=== PATIENT | male | born 1985 | race Caucasian/White ===

== ENCOUNTER 2021-10-07 14:16 | Emergency (ER) | payer OTHER ==
[~2021-10-07] VITALS: Ht 170.2 cm; Wt 113.6 kg
[2021-10-07] MEDS ORDERED: ALBU6.7H9 INH (17:11)
[2021-10-07 17:22] VITALS: BP 130/90
== END 2021-10-07 17:24 | disposition home or self-care (01) ==
LOC: ER 14:17
DX: J06.9 Acute upper respiratory infection, unspecified (principal); Z20.822 Contact with and (suspected) exposure to COVID-19; I10 Essential (primary) hypertension; F12.90 Cannabis use, unspecified, uncomplicated; Z86.16 Personal history of COVID-19; Z79.899 Other long term (current) drug therapy
CPT/HCPCS: 71046; 87502; 87503; 87635; 99284; C9803

== ENCOUNTER 2022-07-08 05:46 | Day surgery (SDC) | payer OTHER ==
[~2022-07-08] VITALS: Ht 170.2 cm; Wt 100.7 kg
[2022-07-08] VITALS (10 sets, daily range): BP systolic 105–133; BP diastolic 67–93
[~2022-07-08 05:46] MED LIST: CLON-369 PO; DESV100T16 PO; DOCUMENT DATE & TIME OF BETA-BLOCKER PO ONE; METO-411 PO; ROSU20TA31 PO; famotidine 20mg tablet PO ONE; ringers solution, lacted 1,000 ML IV SCH; tranexamic acid inj. 1,000 MG in normal saline IV soln 100ML IV ONE
[2022-07-08] MEDS ORDERED: oxymetazoline 15 ML nasal spray NS PRN (06:00)
[2022-07-08] MEDS ORDERED: mupirocin 2% ointment 22GM ONE (06:43)
[2022-07-08] MEDS ORDERED: LIDOcaine 1% 30ml preserv. free vial ONE (06:43)
[2022-07-08] MEDS ORDERED: tranexamic acid 100mg/ml inj. ONE (06:43)
[2022-07-08] MEDS ORDERED: cocaine 4% topical solution 4ml bottle ONE (06:43)
[2022-07-08] MEDS ORDERED: epiNEPHrine 1 mg/ml inj ONE (06:43)
[2022-07-08] MEDS ORDERED: oxymetazoline 15 ML nasal spray NS ONE ×2 (06:44→08:49)
[2022-07-08] MEDS ORDERED: fentaNYL/PF 50MCG/1 ML 2ML syringe ONE ×2 (07:59→09:38)
[2022-07-08] MEDS ORDERED: dexamethasone sod phosphate 4mg/ml inj. ONE (08:15)
[2022-07-08] MEDS ORDERED: ondansetron/PF 4mg/2ml inj ONE (08:15)
[2022-07-08] MEDS ORDERED: sevoflurane 250ml liquid IH ONE (08:15)
[2022-07-08] MEDS ORDERED: PHENYLephrine 10mg/ml 5ml injection IV ONE (08:15)
[2022-07-08] MEDS ORDERED: glycopyrrolate 0.2mg/ml inj ONE (08:15)
[2022-07-08] MEDS ORDERED: ePHEDrine 50MG/ML INJ. ONE (08:15)
[2022-07-08] MEDS ORDERED: LIDOcaine 1% w/EPI 1:100,000 30ml vial (MDV) IJ ONE (08:48)
[2022-07-08] MEDS ORDERED: morphine 2 MG/ML inj. syringe IV PRN (08:50)
[2022-07-08] MEDS ORDERED: morphine 4 MG/ML inj SYRINge IV PRN (08:50)
[2022-07-08] MEDS ORDERED: meperidine/PF 25mg/ml syringe IV PRN ×3 (08:50)
[2022-07-08] MEDS ORDERED: hydrALAZINE 20mg/ml inj. IV PRN (08:50)
[2022-07-08] MEDS ORDERED: ondansetron/PF 4mg/2ml inj IV PRN (08:50)
[2022-07-08] MEDS ORDERED: acetaminophen 1,000mg/100ml IV 100 ML IV PRN (08:50)
[2022-07-08] MEDS ORDERED: labetalol 5mg/ml 20ml inj. IV PRN (08:50)
[2022-07-08] MEDS ORDERED: ringers solution, lacted 1,000 ML IV SCH (08:50)
--- NOTE | 2022-07-08 10:11 | NUR ---
Received from OR via [facility], accompanied by Anesthesiologist DR BARCENAS and report given by Anesthesiolgist. PT IS GROGGY BUT RESPONDS TO VERBAL STIMULI AND ANSWERS QUESTIONS APPROPRIATELY. PT PLACED ON BEDSIDE MONITOR, VSS. PT IS IN SR WITH RATE IN 80'S. PT RECEIVING 10L O2 TO MASK AND TOLERATING WELL WITH O2 SAT >96%. WILL TITRATE DOWN PT TOLERATE. PT HAS 20G PIV TO RT HAND WITH LR INFUSING ORDERED. PT HAS COTTONOIDS TO BILAT NARES. PT DENIES PAIN AT THIS TIME. WILL CONTINUE TO ASSESS.
[2022-07-08] MEDS ORDERED: salt irrigation nasal spray 45 ML SPRAY NS PRN (10:35)
--- NOTE | 2022-07-08 10:35 | NUR ---
COTTONOIDS REMOVED AFTER 30MIN TO BILAT NARES. MINIMAL BLOOD NOTED. NASAL MUSTACHE WITH GAUZE PLACED. PT TOLERATED WELL. CONTINUES TO DENY PAIN. WILL CONTINUE TO ASSESS
--- NOTE | 2022-07-08 11:40 | NUR ---
ABLE TO SAFELY AMBULATE AND TRANSFER SELF. IV TAKEN OUT WITHOUT ANY COMPLICATIONS. ALL DISCHARGE INSTRUCTIONS COVERED WITH PATIENT AND ALL QUESTIONS ANSWERED. PATIENT TAKEN OUT VIA WHEELCHAIR TO PERSONAL VEHICLE WHERE DROVE PATIENT HOME.
== END 2022-07-08 11:32 | disposition home or self-care (01) ==
LOC: PAS 05:46
PROVIDERS: ATTEND Otolaryngology
DX: J32.8 Other chronic sinusitis (principal); J34.3 Hypertrophy of nasal turbinates; J34.2 Deviated nasal septum; J34.89 Other specified disorders of nose and nasal sinuses; J33.8 Other polyp of sinus; F41.9 Anxiety disorder, unspecified; F17.220 Nicotine dependence, chewing tobacco, uncomplicated; I10 Essential (primary) hypertension; F32.A Depression, unspecified; G47.33 Obstructive sleep apnea (adult) (pediatric); Z20.822 Contact with and (suspected) exposure to COVID-19; Z72.89 Other problems related to lifestyle; Z98.890 Other specified postprocedural states; Z79.899 Other long term (current) drug therapy
CPT/HCPCS: 30140; 30520; 31240; 31254; 31267; 36415; 61782; 82948; 87635; 93005; A6402; C9803; J0171; J1100; J2370; J2405; J3010; J3490; J7030; J7050; J7120; U0003; U0005; Z7506; Z7508; Z7512; A4618; A6449; A7000

== ENCOUNTER 2023-04-01 09:11 | Emergency (ER) | payer OTHER ==
[~2023-04-01] VITALS: Ht 170.2 cm; Wt 93.0 kg
[~2023-04-01 09:11] MED LIST changes: -DOCUMENT DATE & TIME OF BETA-BLOCKER PO ONE; -ROSU20TA31 PO; +ROSU20TA73 PO; -famotidine 20mg tablet PO ONE; -ringers solution, lacted 1,000 ML IV SCH; -tranexamic acid inj. 1,000 MG in normal saline IV soln 100ML IV ONE
[2023-04-01 09:18] VITALS: BP 132/90; PULSE 81; RESP 16; TEMP 98.3; O2SAT 98
== END 2023-04-01 09:39 | disposition home or self-care (01) ==
LOC: ER 09:11
DX: M54.50 Low back pain, unspecified (principal); I10 Essential (primary) hypertension; F41.9 Anxiety disorder, unspecified; Z79.899 Other long term (current) drug therapy
CPT/HCPCS: 99281

== ENCOUNTER 2023-04-22 09:18 | Emergency (ER) | payer OTHER ==
[~2023-04-22] VITALS: Ht 170.2 cm; Wt 89.6 kg
[2023-04-22] MEDS ORDERED: DOCU-21 PO (11:00)
[2023-04-22] MEDS ORDERED: IBUP-1984 PO (11:00)
[2023-04-22] MEDS ORDERED: HYDR25SU7 RC (11:00)
[2023-04-22] MEDS: ketorolac trometh. 30mg/ml inj. IM ONE (11:09)
[2023-04-22 11:23] VITALS: BP 178/106; PULSE 101; RESP 18; TEMP 98.2; O2SAT 100
== END 2023-04-22 11:26 | disposition home or self-care (01) ==
LOC: ER 09:18
DX: K64.4 Residual hemorrhoidal skin tags (principal); K62.89 Other specified diseases of anus and rectum; I10 Essential (primary) hypertension; F41.9 Anxiety disorder, unspecified; F12.90 Cannabis use, unspecified, uncomplicated; Z79.899 Other long term (current) drug therapy
CPT/HCPCS: 96372; 99283; J1885

== ENCOUNTER 2023-05-14 20:25 | Emergency (ER) | payer OTHER ==
[~2023-05-14] VITALS: Ht 170.2 cm; Wt 81.8 kg
[~2023-05-14 20:25] MED LIST changes: +DOCU-21 PO; +HYDR25SU7 RC; +IBUP-1984 PO
[2023-05-14 20:28] VITALS: BP 143/92; PULSE 110; TEMP 97.2; O2SAT 99
[2023-05-14] MEDS ORDERED: ketorolac tromethamine 15mg/ml inj. IM ONE (21:20)
[2023-05-14] MEDS ORDERED: PRED20TA PO (21:24)
[2023-05-14] MEDS ORDERED: CEPH-585 PO (21:24)
[2023-05-14] MEDS ORDERED: ketorolac trometh inj. 60 MG/2 ML VIAL IM ONE (21:30)
[2023-05-14] MEDS ORDERED: ketorolac trometh. 30mg/ml inj. IM ONE (21:35)
[2023-05-14 21:36] VITALS: RESP 16
== END 2023-05-14 21:28 | disposition home or self-care (01) ==
LOC: ER 20:26
DX: S63.91XA Sprain of unspecified part of right wrist and hand, initial encounter (principal); X58.XXXA Exposure to other specified factors, initial encounter; Y93.89 Activity, other specified; Y92.89 Other specified places as the place of occurrence of the external cause; Y99.8 Other external cause status
CPT/HCPCS: 96372; 99283; J1885

== ENCOUNTER 2024-12-14 19:01 | Emergency (ER) | payer OTHER, BC ==
[~2024-12-14] VITALS: Ht 167.6 cm; Wt 61.2 kg
[~2024-12-14 19:01] MED LIST changes: -IBUP-1984 PO; -ROSU20TA73 PO; +ROSU20TA98 PO
[2024-12-14] MEDS ORDERED: iohexol 300mg/ml 100ml inj. ONE (19:41)
[2024-12-14 19:49] LABS: MEAN PLATELET VOLUME 7.3 FL (7.4-10.4); RED CELL DISTRIBUTION WIDTH 14.4 % (11.5-14.5)
[2024-12-14 20:02] LABS: APTT 27 SECONDS (22-32); INR 1.0 INR
--- NOTE | 2024-12-14 20:15 | RADIOLOGY REPORT ---
EXAM: CT CT CERVICAL SPINE INDICATION: longterm, pain EXAM DATE: 12/14/2024 07:51 PM COMPARISON: None TECHNIQUE: Multiple axial CT images of the cervical spine were obtained using bone algorithm. Axial a nd coronal reformatting was done. Bone and soft tissue windows were reviewed. Radiation Dose Information: CT Dose: CTDI volume is a 18.17 mGy. Dose-length product is 485.09 mGy*cm FINDINGS: No acute displaced fracture. The alignment is maintained. There are mild degenerative changes of the cervical spine characterized by endplate osteophytosis and intervertebral disc space narrowing, most pronounced at C5-6. There is mild uncovertebral hypertroph y. There is no CT evidence of high-grade spinal canal or neural foraminal stenosis. The paraspinal soft tissues are unremarkable. IMPRESSION: 1. No acute displaced fracture. 2. Degenerative changesMild of the cervical spine as detailed. 3. If clinical symptoms persist, MRI may be beneficial in further evaluation. All CT scans at this medical facility are performed using dose modulation techniques as appropriate t o a performed exam including the following: Automated exposure control was utilized; adjustment of th e MA and/or KV according to patient size; and use of iterative reconstruction technique.
[2024-12-14 20:19] LABS: CREATININE 1.10 MG/DL (0.60-1.10); TOTAL CARBON DIOXIDE 27.6 MMOL/L (24-32); eCRCL 77 ML/MIN; eGFR 74 ML/MIN
--- NOTE | 2024-12-14 20:27 | RADIOLOGY REPORT ---
CLINICAL HISTORY: alf, pain TECHNIQUE: Helical imaging carried out from skull base to vertex without intravenous contrast. This e xam was performed according to our departmental dose optimization program. Up-to-date CT equipment an d radiation dose reduction techniques are utilized as appropriate. CTDIVol: 0.14+ 70.55 mGy DLP: 1436.1 mGy-cm WID: COMPARISON: None FINDINGS: The ventricles and subarachnoid spaces are normal in size and configuration. There is no midline jacquelyn ft or mass effect. The nuñez white matter interfaces are maintained. The basal cisterns are patent. Th ere is no evidence of acute intracranial hemorrhage or extra-axial fluid collection. The mastoid air cells and visualized paranasal sinuses are well-aerated aside from mild mucosal thickening of the lef t maxillary sinus. IMPRESSION: No acute intracranial abnormality.
[2024-12-14] MEDS: morphine 4 MG/ML inj SYRINge IV ONE (20:30)
[2024-12-14] MEDS: ondansetron/PF 4mg/2ml inj IV ONE (20:30)
--- NOTE | 2024-12-14 20:31 | RADIOLOGY REPORT ---
EXAM: CT CT T L SPINE HISTORY: fpc, pain COMPARISON: CT CT CERVICAL SPINE on DOS: 12/14/24 TECHNIQUE: Noncontrast axial CT images of the lumbar spine were performed. Sagittal and coronal refor matted images were obtained. This CT exam was performed using one or more of the following dose reduc tion techniques: Automated exposure control, adjustment of the mA and/or kv according to patient size , or the use of iterative reconstruction techniques. Radiation Dose: CT Dose: CTDI volume is 23.75 mGy. Dose-length product is 1340.32 mGy*cm FINDINGS: There is no acute displaced fracture. The intervertebral disc heights are well-maintained. There is minimal endplate osteophytosis. The alignment is maintained. The paraspinal soft tissues are unremar kable. Suboptimally assessed disc protrusions at L3-L4 and L4-5 efface the thecal sac and contributes to at least mild spinal stenosis. IMPRESSION: 1. No acute displaced fracture. 2. Mild degenerative changes of the thoracolumbar spine as detailed. 3. If clinical symptoms persist, MRI may be beneficial in further evaluation.
[2024-12-14] MEDS: normal saline 1000ml 1,000 ML IV ONE (20:33)
--- NOTE | 2024-12-14 20:38 | RADIOLOGY REPORT ---
COMPUTERIZED TOMOGRAPHY OF THE LEFT KNEE WITHOUT CONTRAST REASON FOR EXAM: group home, pain and swelling of L knee COMPARISON: None TECHNIQUE: The exam was performed on a multidetector scanner. Thin slices were acquired through the left knee. Sagittal and coronal reformations were performed on a separate workstation. Radiation optimization: All CT scans at this facility use at least one of these dose optimization loi hniques: Automated exposure control mA and/or kV adjustment per patient size (includes targeted exams where dose is matched to clinical indication) or iterative reconstruction. RADIATION DOSE: CTDI: 17 mGy DLP: 786 mGy-cm FINDINGS: No acute fracture or dislocation is identified. There is a small knee effusion. There is prepatellar bursitis. There is moderate diffuse soft tissue swelling at the anterior aspect of the kn ee. No gross muscular abnormality is identified. IMPRESSION: No evidence of acute fracture or dislocation. Small knee effusion. Moderate diffuse anterior knee so ft tissue swelling.
--- NOTE | 2024-12-14 20:39 | RADIOLOGY REPORT ---
EXAM: DI KNEE, COMP 4 VW MIN REASON FOR EXAM: KNEE PAIN LEFT TECHNIQUE: AP, cross-table lateral, and tunnel views of the left knee are submitted for review. COMPARISON: None FINDINGS: The bones demonstrate normal mineralization. No fracture or dislocation is identified. The re is moderate anterior knee soft tissue swelling. There is a small knee effusion. IMPRESSION: No acute fracture or dislocation. Small knee effusion.
--- NOTE | 2024-12-14 20:49 | RADIOLOGY REPORT ---
CT CT CHEST ABDOMEN PELVIS W/ IV CONTRAST HISTORY: senior living, pain Comparison Study: CHEST,TWO VIEWS on DOS: 10/07/21 TECHNIQUE: Multidetector CT of the chest, abdomen and pelvis was performed from lower neck to pubic s ymphysis with the use of intravenous contrast. Axial, coronal and sagittal multiplanar reformats were performed by the technologist on a separate workstation. Radiation Dose : CTDI vol 15.19 mGy, DLP 1481.03 mGy*cm. Findings: Chest: Lungs: Unremarkable Pleura: Unremarkable Heart/Great vessels: The visualized heart is unremarkable. No cardiomegaly or pericardial effusion. Mediastinum: Unremarkable Soft tissues/Bones: Unremarkable Abdomen: Liver: Unremarkable. Gallbladder: Unremarkable. Spleen: Unremarkable Pancreas: Unremarkable Adrenals: Unremarkable Kidneys: Unremarkable GI tract: Unremarkable : Unremarkable. Vasculature: Unremarkable Lymphadenopathy: Absent Peritoneum: No ascites Musculoskeletal: Unremarkable Soft tissues: Unremarkable Impression: Chest: 1. No acute cardiopulmonary disease. 2. No evidence of an acute fracture. Abdomen: 1. No acute abdominopelvic or osseous abnormalities.
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
[2024-12-14] MEDS ORDERED: CYCL-920 PO (21:36)
[2024-12-14] MEDS ORDERED: NAPR-56 PO (21:36)
[2024-12-14 21:51] VITALS: BP 151/91; PULSE 77; RESP 12; TEMP 98.5; O2SAT 97
--- NOTE | 2024-12-15 06:16 | ELECTROCARDIOGRAPH REPORT ---
[facility] Test Date: 2024-12-14 Test Time: 19:44:49 Pat Name: JETT CHANEL Department: EMERGENCY ROOM [id number] Room: Gender: M Body And Fender Mechanic: : 1985 Requested By: TUNG PALOMINO Order Number: [id number] Reading MD: Dr. Lex Alvares Measurements Intervals [place] Rate: 96 P: 56 VT: 169 QRS: 32 QRSD: 72 T: 27 QT: 320 QTc: 405 Interpretive Statements Sinus rhythm Left atrial enlargement Abnormal R-wave progression, early transition Artifact in lead(s) V1 Electronically Signed On 12-16-2024 19:28:[address] Lex Alvares Please click the below link to view image of tracing.
== END 2024-12-14 21:50 | disposition home or self-care (01) ==
LOC: ER 19:02
DX: S06.0XAA Concussion with loss of consciousness status unknown, initial encounter (principal); S80.02XA Contusion of left knee, initial encounter; M54.2 Cervicalgia; M54.50 Low back pain, unspecified; G89.11 Acute pain due to trauma; F41.9 Anxiety disorder, unspecified; I10 Essential (primary) hypertension; Z79.899 Other long term (current) drug therapy; V23.49XA Other motorcycle driver injured in collision with car, pick-up truck or van in traffic accident, initial encounter; Y93.89 Activity, other specified; Y92.89 Other specified places as the place of occurrence of the external cause; Y99.8 Other external cause status
CPT/HCPCS: 36415; 70450; 71260; 72125; 72128; 72131; 73564; 73700; 74177; 80048; 80076; 82550; 83690; 84484; 85025; 85610; 85730; 93005; 96361; 96374; 96375; 99285; J2270; J2405; J7030; L0172; Q9967

== ENCOUNTER 2025-01-12 01:30 | Emergency (ER) | payer BC, OTHER ==
[~2025-01-12] VITALS: Ht 167.6 cm; Wt 81.8 kg
[~2025-01-12 01:30] MED LIST changes: +CYCL-920 PO; +NAPR-56 PO
[2025-01-12 01:35] VITALS: BP 142/84; PULSE 92; O2SAT 97
--- NOTE | 2025-01-12 02:15 | RADIOLOGY REPORT ---
CLINICAL INDICATION: KNEE PAIN LEFT TECHNIQUE: 3 views DI KNEE, COMP 4 VW MIN Comparison: DI KNEE, COMP 4 VW MIN on DOS: 12/14/24 FINDINGS: No acute fracture or dislocation. No significant degenerative change. No obvious joint effusion. Ant erior soft tissue swelling. IMPRESSION: 1. Soft tissue swelling without acute osseous finding of the left knee.
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
[2025-01-12] MEDS: ondansetron 4mg rapidly disintigrating tab PO ONE (03:11)
[2025-01-12] MEDS: HYDROcodone/acetaminophen 5mg/325mg tablet PO ONE (03:12)
[2025-01-12] MEDS: ketorolac trometh 15mg/ml vial 15 MG/ML ML IV ONE (03:22)
[2025-01-12 04:01] VITALS: RESP 14
[2025-01-12 04:06] VITALS: TEMP 98.8
[2025-01-12] MEDS ORDERED: HYDR-3965 PO (04:06)
== END 2025-01-12 04:13 | disposition home or self-care (01) ==
LOC: ER 01:31
DX: M25.562 Pain in left knee (principal); I10 Essential (primary) hypertension; F12.90 Cannabis use, unspecified, uncomplicated
CPT/HCPCS: 73564; 96374; 99284; J1885